=== PATIENT | female | born 2005 | race Two or more races ===

== ENCOUNTER 2025-01-12 16:41 | Emergency (ER) | payer MEDICAID, SELFPAY ==
[2025-01-12 16:43] VITALS: BMI 23.4
[2025-01-12 17:07] VITALS: BP 106/71; PULSE 86; RESP 16; TEMP 37; O2SAT 97
--- NOTE | 2025-01-12 17:11 | EDRME_ITS ---
Rapid Medical Screening Exam [facility] Arrival date/time: 01/12/25 16:41 19-year-old female with no known medical history presents to the emergency room with a chief complaint of a fever this morning. Patient states she is also having coughing congestion. Patient is currently 12 weeks . Patient denies any vaginal bleeding or any abdominal pain cramping. I have greeted and performed a focused initial assessment of this patient. A comprehensive ED assessment and evaluation of the patient, analysis of all test results, and completion of the medical decision making process will be conducted by additional ED providers. Chief Complaint: Fever Vital signs: Vital Signs Temperature 98.6 F 01/12/25 17:07 Pulse Rate 86 01/12/25 17:07 Respiratory Rate 16 01/12/25 17:07 Blood Pressure 106/71 01/12/25 17:07 Pulse Oximetry (%) 97 01/12/25 17:07 Oxygen Delivery Method Room Air 01/12/25 17:07 Vital signs reviewed by provider: Yes
[2025-01-12 19:06] LABS: Collection Type, Urine Clean Catch
[2025-01-12 19:21] LABS: Bilirubin,Urine Negative (Negative); Blood,Urine Negative (Negative); Clarity,Urine Clear (Clear/Hazy); Color,Urine Lt-Yellow (Lt Yel-Yel); Culture Indicated,Urine Not Indicated; Glucose, Urine Negative (Negative); Ketones,Urine Negative (Negative); Leukocyte Esterase,Urine Positive (Negative); Nitrite,Urine Negative (Negative); PH,Urine 6.0 (5.0-7.0); Protein,Urine Negative (Neg - Trace); RBC,Urine 6 /hpf (0-3); Specific Gravity,Urine 1.018 (1.001-1.035); Squamous Epithelial Cell,Urine 5 /hpf (0-5); Urobilinogen,Urine Negative mg/dL (0.0-1.0); WBC,Urine 10 /hpf (0-5)
--- NOTE | 2025-01-12 21:26 | PD.EDADULT ---
ED General RME/HPI General Chief complaint: Fever Stated complaint: 12WK PREG, FEVER WITH FATIGUE AND LIGHTHEAD Time Seen by Provider: 01/12/25 21:13 Arrival date/time: 01/12/25 16:41 CC: Fever HPI patient woke up this morning with a fever patient did not have thermometer but felt warm to touch. Patient was seen by clinic and referred to us for further evaluation. Patient states temperature taken at the clinic was normal . Patient is approximately 12 weeks she is a G1, P0 denies vaginal bleeding vaginal discharge cough sore throat nausea vomiting or diarrhea. No other complaints at this time RME / HPI RME / HPI narrative: 01/12/25 16:41 19-year-old female with no known medical history presents to the emergency room with a chief complaint of a fever this morning. Patient states she is also having coughing congestion. Patient is currently 12 weeks . Patient denies any vaginal bleeding or any abdominal pain cramping. I have greeted and performed a focused initial assessment of this patient. A comprehensive ED assessment and evaluation of the patient, analysis of all test results, and completion of the medical decision making process will be conducted by additional ED providers. Related Data Previous Rx's ?Medication ?Instructions ?Recorded cephalexin 500 mg capsule 500 mg PO BID #14 caps 01/12/25 Allergies Allergy/AdvReac Type Severity Reaction Status Date / Time No Known Allergies Allergy Verified 01/12/25 16:44 Review of Systems Review of Systems Narrative Review of Systems: GEN: + fever, no chills, no weight loss EYES: No discharge, no visual changes, no pain HEENT: No ear pain, no congestion, no sore throat PULM: No shortness of breath, no cough, no congestion CV: No chest pain, no dyspnea on exertion, no palpitations GI: No nausea, no vomiting, no diarrhea, no pain, no constipation : No frequency, no urgency, no dysuria MUSC/SKEL: No joint pain, no back pain SKIN: No rash PSYCH: No hallucinations, no depression HEME/LYMPH: No easy bleeding or bruising tendencies NEURO: No weakness, no headache Past Medical History Past Medical History NEUROLOGIC: Negative Neurological Disorders or Seizures CARDIAC: Negative Cardiac Disorders or Congestive Heart Failure RESPIRATORY: Negative Chronic Obstructive Pulmonary Disease (COPD) or Asthma GASTROINTESTINAL: Positive Gastrointestinal Disorders and Gall Bladder Disease (FOR THIS PROC); Negative Hepatitis GENITOURINARY: Negative Genitourinary Disorders or Renal Disease REPRODUCTIVE: Negative Previous Pregnancies MUSCULOSKELETAL: Negative Musculoskeletal Disorders ENDOCRINE: Negative Endocrine Disorders, Diabetes Mellitus Type 1 or Diabetes Mellitus Type 2 HEMATOLOGIC: Negative Blood Disorders or Sickle Cell Disease OTHER HISTORY: Negative Hospitalization, Autoimmune Disease, Shingles, Falls, Blood Transfusions, Blood Transfusion Reaction, Anesthesia Reactions, MRSA, Chicken Pox, Clostridium Difficile or Cancer Family History FAMILY HISTORY: Positive Family Surgery (MOTHER); Negative Family Psychiatric Problems, Family Respiratory Disorders, Family Cardiac Disorders, Family Gastrointestinal Problems, Family Cancer or Family Anesthesia Reaction Social History SMOKING STATUS: Never smoker ED Exam Narrative Physical exam: [General: Not in any acute distress Head normocephalic HEENT: Eyes pupils are PERRLA EOMs are intact mouth pink moist membranes uvula is midline swallow symmetrical phonation is normal tonsils are nonerythematous nonedematous no exudative patches uvula is midline's. Ears EACs are partially occluded with cerumen TMs are visible positive cone of light no erythema or edema. All other subsystems of HEENT are within acceptable limits Neck is supple nontender, no LAD Chest equal chest rise nontender to palpation Respiratory: Clear to auscultation no wheezes crackles or rubs CV: Rate rhythm is regular no murmurs rubs or clicks Abdomen is soft nontender no masses positive bowel sounds all 4 quadrants. Unable to appreciate heart tones Back: No CVA tenderness no spinous process tenderness from cervical spine thoracic and lumbar spine Skin: Intact no petechiae rash induration ulceration or crepitus Extremities: Moving all extremity against resistance cap refill less than 2 seconds neurosensory intact Neuro: Awake alert oriented x3 Glascow coma 15 no focal deficits] Course Quality Measures none Orders Category Date Time Status Bedside COVID-19 Antigen Test NOW Care 01/12/25 17:10 Active Bedside Influenza A&B Antigen Test NOW Care 01/12/25 17:10 Completed UA, C/S IF [Urinalysis, C/S if Indicated] Stat Lab 01/12/25 18:54 Completed Vital Signs Vital signs: Vital Signs Temperature 98.6 F 01/12/25 17:07 Pulse Rate 86 01/12/25 17:07 Respiratory Rate 16 01/12/25 17:07 Blood Pressure 106/71 01/12/25 17:07 Pulse Oximetry (%) 97 01/12/25 17:07 Oxygen Delivery Method Room Air 01/12/25 17:07 Discharge Plan Plan Patient Disposition: HOME (Self Care) Patient condition on transfer: Stable Prescriptions/Referrals Prescriptions/Med Rec: New cephalexin 500 mg capsule 500 mg PO BID Qty: 14 0RF Referrals: Micheal Reilly MD [Physician, Family Practice] - In 1 week No Primary/Family,Physician [Primary Care Provider] - In 1 week Problem List Clinical Impression: UTI (urinary tract infection), Patient/Caregiver Discharge Instructions Education Materials: First Trimester, ED CYSTITIS Female Adult Print Language: Syriac Stand Alone Forms: Navigating Cancer Info., Work/School Release, Patient Portal Info Letter PA/POSTAGE MACHINE OPERATOR Supervising Physician PA/POSTAGE MACHINE OPERATOR Supervising Physician: Stone Farias ENP [facility] Clinical Information Provided by patient Medical Records Reviewed [facility] Meds/Rx Considered, not Ordered None Labs/Rad/Tests considered, not Ordered None Chronic Illness/Social Conditions which may negatively complicate care or outcome(s)-explain: None or not applicable Add or document further as needed: EKG EKG not done Lab Interpretation Lab(s) interpretation(s): Urine shows leukocyte esterase positive WBCs 10 RBCs of 6 and squamous epithelial 5 no bacteria. COVID and influenza are negative Imaging Imaging interpretation: none Radiology reports / interpretation(s): Patient may have a viral syndrome, patient's urine looks potentially contaminated however being we will address this by treating it empirically. Patient is agreement with this plan. Patient advised if there is worsening of symptoms in spite of Tylenol to return the emergency room for reevaluation.
== END 2025-01-12 21:37 | disposition home or self-care (01) ==
PROVIDERS: Nurse Practitioner Family; Emergency Provider Emergency Medicine
DX: O23.41 Unspecified infection of urinary tract in pregnancy, first trimester (principal); N39.0 Urinary tract infection, site not specified; Z3A.12 12 weeks gestation of pregnancy
CPT/HCPCS: 81001; 87400; 87811; 99283

== ENCOUNTER 2025-04-13 13:44 | Outpatient (AMB) | payer MEDICAID, SELFPAY ==
[2025-04-13 14:01] VITALS: BP 107/74; PULSE 89; RESP 16; TEMP 36.6; O2SAT 98; BMI 25.2
--- NOTE | 2025-04-13 14:01 | OBCLNT_ITS ---
Vital Signs 04/13/25 14:01 Height 1.55 m Height Method Stated Weight 60.498 kg Weight Measurement Method Standing Scale BMI 25.2 BP 107/74 Blood Pressure Source Automatic Cuff Blood Pressure Location Left Upper Arm Position Sitting Respiration 16 Pulse 89 Pulse Source Monitor Temp 97.8 F Temp Source Oral Pulse Oximetry (%) 98 Oxygen Delivery Method Room Air Allergies/Home Meds Allergies & Medications Allergies No Known Allergies Allergy (Verified 04/13/25 14:02) Medication Reconciliation vitamins-iron fumarate 66 mg iron-folic acid 1 mg tablet tab PO 04/13/25 [History Confirmed 04/13/25] Intake Visit Data Collection New Patient or Established: Established Patient (seen at [facility] 3 years) Reason for Visit:: TRANSFER INITIAL CARE Seen by Clinical Staff ONLY (RN/MA): No Domestic Housekeeper Required: No Do You Feel Safe at Home: Yes Authorities Contacted: N/A PCP or OBGYN visit in last 3 months: Yes Hx Now: Yes Are you currently on any form of Control: No Last menstrual period: 10/11/24 Pain Present Currently: No Pain Scale Used: Gerber-Levin/Numerical Pain scale:: 0 Smoking Status Smoking Status: Never smoker Immunizations Flu Vaccine in the Last 12 Months: Yes Flu Vaccine Exclusion Criteria: Already Received Questionnaires Covid-19 Vaccine Questionnaire Has patient been vacinated for Covid-19 Have you been vacinated for Covid-19: Yes PHQ-9 PHQ-2 Over the last 2 weeks, how often have you been bothered by any of the following problems? 1. Little interest or pleasure in doing things: not at all 2. Feeling down, depressed, or hopeless: not at all Total score: 0 PHQ-9 3. Trouble falling or staying asleep, or sleeping too much: Not at all 4. Feeling tired or having little energy: Not at all 5. Poor appetite or overeating: Not at all 6. Feeling bad about yourself - or that you are a failure or have let yourself or your family down: Not at all 7. Trouble concentrating on things, such as reading the newspaper or watching television: Not at all 8. Moving or speaking so slowly that other people could have noticed? - Or the opposite - being so fidgety or restless that you have been moving around a lot more than usual: not at all 9. Thoughts that you would be better off or of hurting yourself in some way: Not at all Total score: 0 Source: Developed by Drs. Cristopher Rivas, Sherri Mason, Binh Pina and colleagues, with an educational kate from [employer]. Depression screen completed yes Social History Living Situation History Marital Status: Single Lives With: Family Housing: TRAILER Tobacco History Smoking Status: Never smoker Second Hand Smoke Exposure: No Alcohol History Alcohol Intake: Never Domestic Abuse History Do You Feel Safe at Home: Yes History of Present Illness HPI Narrative 19-year-old 1 para 0 for OBI. A transfer from [facility] with records. Patient last. Was October 19. And this gave EDC of July 26, 2025. Patient had her first ultrasound March 30, 2025. She was 23 weeks and 1 that confirmed dates. An anatomy scan was normal. There was found to be urinary tract dilation kidneys were little bit swollen in the ureter. So patient was scheduled for a follow-up ultrasound in 4 to 6 weeks for that otherwise cervix was long, amniotic fluid normal and EFW 57 percentile. Denies any chronic health issues. Denies social habits. History of cholecystectomy 3 years ago. Reports movement. No leaking or bleeding PAYMENT COLLECTOR: Past Medical History Past Medical History: No Hx Neurological Disorders, No Hx Cardiac Disorders, No Hx Cancer, No Hx Blood Disorders, Yes Hx Gastrointestinal Disorders, No Hx Renal Disease, No Hx Diabetes Mellitus Type 1 and No Hx Diabetes Mellitus Type 2 OB Initial Visit OB Flowsheet OB Flowsheet Initial Weight: Not Recorded Date -?-?-?-?-?-?-?-?-?-?-?-?- EGA Weight BP Alb Glu CTX Pres Fundal ht FHR Mov Dilation Station Effacement Hx Notes Visit Note 04/13/25 -?-?-?-?-?-?-?-?-?-?-?-?- 25w 1d 60.498 kg 107/74 absent unknown 25 145 active 19-year-old 1 para 0 for OBI. Patient is a transfer from [facility] at 6 months. Her LMP is October 19, 2024. And this gave her due date July 26, 2025. She has had no problems with the . Reports movement. Denies labor complaints Third t rimester labs today. Discussed labor precautions continue prenatals. Return in 4 weeks OB check. Patient has a follow-up scan scheduled in 6 weeks Menstrual History Menstrual reliability: definite Flow: normal Menstrual regularity: regular Monthly: Yes Age at menarche: 11 On control pills at conception: No Associated symptoms (LMP): Reports nausea, fatigue and breast tenderness OB History : 1 Infection History & Risk Evaluation History of STDs: none Genetic Screening & History Genetic Screening/Teratology Counseling - Includes patient, baby's father, or anyone in either family with: 1. Patient's age 35 years or older as of estimated date of delivery: No 2. Thalassemia (Korean, Danish, Mediterranean, or Background); MCV less than 80: No 3. Neural Tube Defect (Meningomyelocele, Spina Bifida, or Anencephaly): No 4. Congenital Heart Defect: No 5. Down Syndrome: No 6. Damon-Sachs (Ashkenazi Yarsanism, Cajun, Hong Konger Jennings): No 7. You Disease (Ashkenazi Yarsanism): No 8. Familial Dysautonomia (Ashkenazi Yarsanism): No 9. Sickle Cell Disease or Trait (): No 10. Hemophilia or other blood disorders: No 11. Muscular Dystrophy: No 12. Cystic Fibrosis: No 13. Fayette's Chorea: No 14. Mental Retardation/Autism: Yes (SISTER) 15. Other inherited genetic or chromosomal disorder: No 16. Maternal Metabolic Disorder (EG,TYPE 1 Diabetes, PKU): No 17. Patient or baby's father had a child with defects not listed above: No 18. Recurrent loss or a stillbirth: No 19. Medications (including supplements, vitamins, herbs or otc drugs)/illicit/recreational drugs/alcohol since last menstrual period: No 20. Any other: No Infection History 1. Live with someone with TB or exposed to TB: No 2. Rash or viral illness since last menstrual period: No 3. Hepatitis B,C: No Other (see comments) Source: [employer] Review of Systems Review of Systems Systems Reviewed: All systems reviewed, normal except as documented Constitutional Constitutional: Reports fatigue Gastrointestinal Gastrointestinal: Reports nausea Endocrine Endocrine: Reports fatigue Exam General Limitations: no limitations General Appearance: alert, in no apparent distress, comfortable, cooperative, healthy appearing, well developed and well groomed Head Head exam: atraumatic, normocephalic and normal inspection Chest Chest inspection: Present normal inspection and symmetric chest wall rise Resp Respiratory exam: Present normal lung sounds bilaterally Card Cardiovascular exam: Present regular rate, normal rhythm and normal heart sounds Abdominal Abdominal exam: Present soft and normal bowel sounds Psych Psychiatric exam: Present normal affect and normal mood Office Procedures OBC Clinic LOC & Office Proc's Nursing/Assessment Patient Status: Established Patient OB Clinic Nursing Assessment: Medication Reconciliation, Update PMH in EMR and Vital Signs OB Clinic Coordination of Care: Complex Care and Chronic Disease 1-5, Consent,records obtained, informed consent, Education Simp Pt/Fam, 1 Ins Authorization, Lab and Imaging orders, Results/Orders obtained and Staff clarify orders Special Needs: Heart tones Established Patient Charge Established Patient Point Assignment: 150 Established Patient Point Charge: EP Level 4 (120-155) Assessment & Plan Diagnosis / Problem List (1) Encounter for supervision of high risk in second trimester, antepartum: Status: Acute Plan Reviewed records. And labs. Discussed labor precautions. Third trimester labs ordered. Patient has a follow-up with maternal- medicine in 4 to 6 weeks. Return in 4 weeks OB check Additional Plan Follow Up: 4 Weeks (4 week obc)
== END 2025-04-13 14:12 | disposition home or self-care (01) ==
LOC: HODSOBC 13:44
PROVIDERS: Supervising Provider Advanced Practice Midwife; Visit Provider Advanced Practice Midwife
DX: O09.92 Supervision of high risk pregnancy, unspecified, second trimester (principal); Z3A.25 25 weeks gestation of pregnancy
CPT/HCPCS: 99214; G0463